=== PATIENT | male | born 1990 | race Two or more races ===

== ENCOUNTER 2024-09-18 08:12 | Emergency (ER) | payer MEDICAID, OTHER ==
[~2024-09-18] VITALS: Ht 182.9 cm; Wt 85.0 kg
--- NOTE | 2024-09-18 08:24 | ED.PDOC ---
History of Present Illness HPI Comments 34-year-old male brought in by ambulance with no prior history associated with a chief complaint of UE. Patient reports that he was having conflict with his neighbor at the hotel punched a door with his left hand for which he currently has swelling on the 2nd digit at the knuckle. Social history of alcohol and marijuana use. Denies chills, fever, N/V/D, SOB, CP. No other associated symptoms, modifiers, recent injuries or sick contacts present at this time. Chief Complaint: Upper Extremity Time Seen by MD: 08:20 Reviewed Notes: Nurses Notes, Medications, Allergies Allergies: Coded Allergies: NO KNOWN ALLERGIES (Unverified , 09/18/24) Information Source: Patient, Spouse Mode of Arrival: EMS Severity: Moderate Timing: Minutes Duration: Since onset, Minutes Prehospital treatment: None Past Medical History PAST MEDICAL HISTORY: Denies Surgical History: Denies all surgeries Family History Family History: Reviewed,noncontributory to illness, Unknown Social History Smoker: Non-Smoker Alcohol: Occasionally Drugs: Marijuana Lives In: Home Constitutional: denies: chills, diaphoresis, fatigue, fever, malaise, sweats, weakness, others EENTM: denies: blurred vision, double vision, ear bleeding, ear discharge, ear drainage, ear pain, ear ringing, eye pain, eye redness, hearing loss, mouth pain, mouth swelling, nasal discharge, nose bleeding, nose congestion, nose pain, photophobia, tearing, throat pain, throat swelling, voice changes, others Respiratory: denies: cough, hemoptysis, orthopnea, SOB at rest, shortness of breath, SOB with excertion, stridor, wheezing, others Cardiovascular: denies: chest pain, dizzy spells, diaphoresis, Dyspnea on exertion, edema, irregular heart beat, left arm pain, lightheadedness, palpitations, PND, syncope, others Gastrointestinal: denies: abdomen distended, abdominal pain, blood streaked bowels, constipated, diarrhea, dysphagia, difficulty swallowing, hematemesis, melena, nausea, poor appetite, poor fluid intake, rectal bleeding, rectal pain, vomiting, others Genitourinary: denies: burning, dysuria, flank pain, frequency, hematuria, incontinence, penile discharge, penile sore, pain, testicle pain, testicle swelling, urgency, others Neurological: denies: dizziness, fainting, headache, left sided numbness, left sided weakness, numbness, paresthesia, pre-existing deficit, right sided numbness, right sided weakness, seizure, speech problems, tingling, tremors, weakness, others Musculoskeletal: denies: back pain, gout, joint pain, joint swelling, muscle pain, muscle stiffness, neck pain, others Integumetry: reports: others (Hand pain with swelling); denies: bruises, change in color, change in hair/nails, dryness, laceration, lesions, lumps, rash, wounds Allergic/Immunocompromised: denies: Difficulty Healing, Frequent Infections, Hives, Itching, others Hematologic/Lymphatic: denies: anemia, blood clots, easy bleeding, easy bruising, swollen glands, others Endocrine: denies: excessive hunger, excessive sweating, excessive thirst, excessive urination, flushing, intolerance to cold, intolerance to heat, unexplained weight gain, unexplained weight loss, others Psychiatric: denies: anxiety, bipolar disorder, depression, hopeless, panic disorder, schizophrenia, sleepless, suicidal, others All Other Systems: Reviewed and Negative Physical Exam General Appearance: Moderate Distress, Normal HEENT: Normal ENT Inspection, Pharynx Normal, TMs Normal Neck: Full Range of Motion, Non-Tender, Normal, Normal Inspection Respiratory: Chest Non-Tender, Lungs Clear, No Accessory Muscle Use, No Respir atory Distress, Normal Breath Sounds Cardiovascular: No Edema, No JVD, No Murmur, No Gallop, Normal Peripheral Pulses, Regular Rate/Rhythm Breast Exam: Deferred Gastrointestinal: No Organomegaly, Non Tender, No Pulsatile Mass, Normal Bowel Sounds, Soft Genitalia: Deferred Pelvic: Deferred Rectal: Deferred Extremities: No calf tenderness, Normal capillary refill, Normal range of motion, Non-tender, No pedal edema, Swelling (Left hand) Musculoskeletal : Apperance: Normal Neurologic: Alert, 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 Was a procedure done?: No Differential Dx Considerations may include: Musculoskeletal pain X-Ray, Labs, Meds, VS Vital Signs Date Time Temp Pulse Resp B/P (MAP) Pulse Ox O2 Delivery O2 Flow Rate FiO2 09/18/24 08:16 97.9 68 18 166/108 (127) 97 97.9 09/18/24 08:16 97.9 68 18 166/108 (127) 97 97.9 Current Medications Medications (Trade) Dose Ordered Sig/Pro Route Start Time Stop Time Status Last Admin Ibuprofen (Motrin Tablet) 800 mg ONCE ONCE PO 09/18/24 08:30 09/18/24 08:31 DC 09/18/24 08:36 Ketorolac Tromethamine (Toradol Injection) 60 mg ONCE ONCE IM 09/18/24 08:30 09/18/24 08:31 DC 09/18/24 08:36 Patient alert. Came in because of left hand pain. Vitals stable. Answering questions. Was given Toradol. X-ray does show fracture. Placed a splint. Explained to the patient. Continue monitoring. Was told to follow up with his primary care physician. Was told to come back if there is any problem. Time of 1ST Reevaluation: 08:50 Reevaluation 1ST: Unchanged Patient Education/Counseling: Diagnosis, Treatment, Prognosis Family Education/Counseling: Diagnosis, Treatment, Prognosis SEPSIS Sepsis Screen Physician Orders L Hand 3v Xray (09/18/24 09:10) Vital Signs Date Time Temp Pulse Resp B/P (MAP) Pulse Ox O2 Delivery O2 Flow Rate FiO2 09/18/24 08:16 97.9 68 18 166/108 (127) 97 97.9 09/18/24 08:16 97.9 68 18 166/108 (127) 97 97.9 Medications Medications Dose Ordered Sig/Pro Route Start Time Stop Time Status Last Admin Dose Admin Ibuprofen 800 mg ONCE ONCE PO 09/18/24 08:30 09/18/24 08:31 DC 09/18/24 08:36 Ketorolac Tromethamine 60 mg ONCE ONCE IM 09/18/24 08:30 09/18/24 08:31 DC 09/18/24 08:36 Departure 1 Departure Time of Disposition: 08:29 Impression: Primary Impression: Fracture, finger Qualified Codes: S62.641A - Nondisplaced fracture of proximal phalanx of left index finger, initial encounter for closed fracture Additional Impression: Musculoskeletal pain Disposition: 01 HOME / SELF CARE / HOMELESS Condition: Good Discharged With: Self Critical Care Note Critical Care Time?: No Stability Stability form required: No Heart Score Heart Score: Heart Score Response (Comments) Value History N/A 0 EKG N/A 0 Age N/A 0 Risk Factors N/A 0 Troponin N/A 0 Total 0 I personally scribed for GOLDIE JACOBSEN MD ([email or web address]) on 09/18/24 at 08:24. Electronically submitted by Jason Llanos ([email or web address]). GOLDIE JACOBSEN MD Sep 18, 2024 08:24
[2024-09-18] MEDS: KETOROLAC TROMETH 60MG/2ML VIAL IM ONE (08:36)
[2024-09-18] MEDS: IBUPROFEN 800 MG TAB PO ONE (08:36)
--- NOTE | 2024-09-18 09:35 | DVH ---
XY L HAND 3V XRAY, INDICATION: injury r/o fx TECHNICAL DATA: Frontal, oblique and lateral views were obtained of the left hand. COMPARISON: None FINDINGS: Comminuted fracture at the head of the 2nd metacarpal. Joint spaces are maintained. Alignment is estelle omic. Soft tissues are within normal limits. IMPRESSION: Comminuted fracture at the head of the 2nd metacarpal.
[2024-09-18 10:05] VITALS: BP 135/70; PULSE 61; RESP 18; TEMP 97.9; O2SAT 95
== END 2024-09-18 10:08 | disposition home or self-care (01) ==
LOC: ER 08:12 → EDBD 08:12 → ER 10:07
DX: S62.641A Nondisplaced fracture of proximal phalanx of left index finger, initial encounter for closed fracture (principal); M79.18 Myalgia, other site; F10.90 Alcohol use, unspecified, uncomplicated; F12.90 Cannabis use, unspecified, uncomplicated; Y04.8XXA Assault by other bodily force, initial encounter; Y93.89 Activity, other specified; Y92.89 Other specified places as the place of occurrence of the external cause; Y99.8 Other external cause status; Y90.9 Presence of alcohol in blood, level not specified
CPT/HCPCS: 29130; 73130; 96372; 99283; J1885